=== PATIENT | female | born 1970 | race Caucasian/White ===

== ENCOUNTER 2019-08-24 09:13 | Inpatient (IN) ==
[2019-08-24] MEDS ORDERED: IMODIUM PO PRN ×2 (12:19)
[2019-08-24] MEDS ORDERED: NICOTINE GUM BUCCAL PRN (12:19)
[2019-08-24] MEDS ORDERED: DESYREL PO PRN (12:19)
[2019-08-24] MEDS ORDERED: D5W 1,000 ML IV PRN (12:19)
[2019-08-24] MEDS ORDERED: SENOKOT PO PRN (12:19)
[2019-08-24] MEDS ORDERED: MAALOX PLUS LIQUID PO PRN (12:19)
[2019-08-24] MEDS ORDERED: PHENOBARBITAL IV PRN (12:19)
[2019-08-24] MEDS ORDERED: ZOFRAN IV PRN (12:19)
[2019-08-24] MEDS ORDERED: TUBERSOL ID ONE (12:19)
[2019-08-24] MEDS ORDERED: ZOFRAN IM PRN (12:19)
[2019-08-24] MEDS ORDERED: ZOFRAN ODT PO PRN (12:19)
[2019-08-24] MEDS ORDERED: SEROQUEL PO PRN (12:19)
[2019-08-24] MEDS ORDERED: NICODERM PATCH TD PRN (12:19)
[2019-08-24] MEDS ORDERED: TYLENOL PO PRN (12:19)
[2019-08-24] MEDS ORDERED: DULCOLAX PR PRN (12:19)
[2019-08-24 12:50] LABS: URINE SOURCE CLEAN CATCH
[2019-08-24 12:54] LABS: BILIRUBIN URINE NEGATIVE (NEGATIVE); BLOOD URINE NEGATIVE (NEGATIVE); CLARITY SL. CLOUDY (CLEAR); COLOR YELLOW; GLUCOSE URINE NEGATIVE (NEGATIVE); KETONE URINE NEGATIVE (NEGATIVE); LEUKOCYTES URINE NEGATIVE (NEGATIVE); NITRITE URINE NEGATIVE (NEGATIVE); PROTEIN URINE NEGATIVE (NEGATIVE); UROBILINOGEN URINE NORMAL
[2019-08-24 13:03] LABS: UR AMPHETAMINES QUAL NONE DETECTED (NONE DETECT); UR BARBITUATES QUAL NONE DETECTED (NONE DETECT); UR BENZODIAZEPIN QUAL NONE DETECTED (NONE DETECT); UR CANNABINOIDS QUAL NONE DETECTED (NONE DETECT); UR COCAINE QUAL NONE DETECTED (NONE DETECT); UR METHADONE QUAL NONE DETECTED (NONE DETECT); UR METHAMPHETAMINE QUAL NONE DETECTED (NONE DETECT); UR OPIATES QUAL NONE DETECTED (NONE DETECT); UR OXYCODONE QUAL NONE DETECTED (NONE DETECT); UR PCP QUAL NONE DETECTED (NONE DETECT); UR PROPOXYPHENE QUAL NONE DETECTED (NONE DETECT); UR TCA QUAL PRESUMPTIVE POSITIVE (NONE DETECT)
[2019-08-24] MEDS ORDERED: ATARAX PO PRN (13:04)
[2019-08-24] MEDS ORDERED: BENTYL PO PRN (13:04)
[2019-08-24 13:18] LABS: AMYLASE 31 U/L (20-200); LIPASE 17 U/L (13-60)
[2019-08-24] MEDS ORDERED: PNEUMOVAX 23 IM ONE (14:24)
[2019-08-24] MEDS: ATARAX PO PRN (14:55)
[2019-08-24] MEDS: SUBOXONE 2 MG/0.5 MG FILM SL SCH (17:37)
[2019-08-24] MEDS: ROBAXIN PO PRN (18:40)
[2019-08-25] MEDS: MOTRIN PO PRN (00:17)
[2019-08-25] MEDS: ATARAX PO PRN ×3 (02:21→23:21)
[2019-08-25] MEDS: LIBRIUM PO PRN (03:09)
[2019-08-25] MEDS: ROBAXIN PO PRN ×3 (03:09→23:22)
[2019-08-25] MEDS: SUBOXONE 2 MG/0.5 MG FILM SL SCH ×3 (06:48→18:37)
[2019-08-25] MEDS: PROTONIX PO SCH ×2 (06:49→09:59)
[2019-08-25] MEDS ORDERED: LR 0 ML ONE (09:51)
[2019-08-25] MEDS: THERA M PLUS PO SCH (09:58)
[2019-08-25] MEDS: FOLIC ACID PO SCH (09:58)
[2019-08-26] MEDS: PROTONIX PO SCH (06:05)
[2019-08-26] MEDS: SUBOXONE 2 MG/0.5 MG FILM SL SCH (06:06)
[2019-08-26] MEDS ORDERED: SUBOXONE 2 MG/0.5 MG FILM SL SCH (08:30)
[2019-08-26] MEDS ORDERED: BUSPAR PO PRN (08:31)
[2019-08-26] MEDS: ATARAX PO PRN ×3 (08:56→23:50)
[2019-08-26] MEDS: PAXIL PO SCH (08:56)
[2019-08-26] MEDS: ZANTAC PO SCH ×2 (08:56→21:21)
[2019-08-26] MEDS: THERA M PLUS PO SCH (08:56)
[2019-08-26] MEDS: FOLIC ACID PO SCH (08:56)
[2019-08-26] MEDS: ROBAXIN PO PRN ×2 (08:56→18:51)
[2019-08-26] MEDS: VITAMIN B-1 PO SCH ×2 (08:56→09:25)
[2019-08-26] MEDS: SYNTHROID PO SCH (09:25)
[2019-08-26] MEDS: SUBOXONE 8 MG/2 MG FILM SL SCH ×2 (09:25→21:21)
--- NOTE | 2019-08-26 09:38 | PROGRESS NOTE ---
DATE: 08/26/2019 SUBJECTIVE: Patient notes that she feels better on the 4 mg but does not feel quite well. The patient says it is going to last long enough. Notes that she is not going to be successful at home without Suboxone. Denies any fevers or chills. PHYSICAL EXAMINATION: Vital Signs: Reviewed. Temperature 98.7 degrees, pulse 111, respiratory 20. General: Patient is awake, alert, very pleasant, in no respiratory distress. HEENT: Normocephalic. Neck: Supple. Cardiovascular: Regular rate. Chest: Clear. Abdomen: Soft. Extremities: Moves all extremities. Neurologic: No changes. ASSESSMENT: 1. Nausea vomiting. 2. Abdominal pain. 3. Paresthesias. 4. Paroxysmal sweating. 5. Opiate abuse, withdrawal and stabilization. PLAN: We will continue patient in the hospital. We are going to attempt 4 mg today. Hopefully, this will be enough if not which certainly will need to increase and we will follow. We will continue counseling. cc: Alex Philippe MD
[2019-08-27] MEDS: PROTONIX PO SCH (06:52)
[2019-08-27] MEDS: SYNTHROID PO SCH (06:52)
[2019-08-27] MEDS: ATARAX PO PRN ×2 (09:01→20:49)
[2019-08-27] MEDS: SUBOXONE 8 MG/2 MG FILM SL SCH ×2 (09:01→20:49)
[2019-08-27] MEDS: ZANTAC PO SCH ×2 (09:01→20:49)
[2019-08-27] MEDS: PAXIL PO SCH (09:01)
[2019-08-27] MEDS: FOLIC ACID PO SCH (09:02)
[2019-08-27] MEDS: VITAMIN B-1 PO SCH (09:02)
[2019-08-27] MEDS: THERA M PLUS PO SCH (09:02)
[2019-08-27] MEDS: SINEMET 25/100 PO PRN (09:10)
[2019-08-27] MEDS: MOTRIN PO PRN ×2 (09:10→20:50)
--- NOTE | 2019-08-27 10:24 | PROGRESS NOTE ---
DATE: 08/26/2019 SUBJECTIVE: The patient notes that she is feeling better although not completely back to normal. She states she is still having breakthrough withdrawal symptoms when the medication wears off. Denies any fevers or chills. PHYSICAL EXAMINATION: Vital signs reviewed. General: She is awake, alert. She is no apparent respiratory distress. HEENT: Normocephalic. Neck: Supple. Cardiovascular: Regular rate. No murmurs. Chest: Clear. Abdomen: Soft. Extremities: Moves all extremities. ASSESSMENT: 1. Nausea and vomiting. 2. Abdominal pain. 3. Mild paresthesias. 4. Paroxysmal sweating. 5. Chronic anxiety, depression. 6. Opiate abuse withdrawal and stabilization. PLAN: Will continue patient in the hospital, continue to follow, will increase her Suboxone up to 8, continue counseling, further orders as needed. cc: Alex Philippe MD MTDD
--- NOTE | 2019-08-27 12:09 | PROGRESS NOTE ---
DATE: 08/27/2019 SUBJECTIVE: The patient notes that she thought she was feeling better yesterday, however, last evening had a terrible night. She had issues with anxiety, restlessness, nausea, and she vomited a time or 2. She states she did not sleep well. States that at home that is typically when she would take opiates. PHYSICAL EXAMINATION: Vital Signs: Reviewed. Temperature 97.5 degrees, pulse 87, respiratory rate 18, and BP 132/78. General: Patient is in no current respiratory distress. HEENT: Normocephalic. Neck: Supple. Cardiovascular: Regular rate. No murmurs. Lungs: Chest clear and nonlabored. Abdomen: Soft. Nondistended. Nontender. Extremities: Moves all extremities. Neurologic: No focal changes. Skin: Warm and dry. No rashes. ASSESSMENT: 1. Nausea and vomiting. 2. Abdominal pain. 3. Tremors. 4. Myalgias. 5. Anxiety and depression. 6. Hypothyroidism. 7. Fibromyalgia. 8. Chronic pain. 9. Opiate abuse withdrawal and stabilization on Suboxone. PLAN: We will continue medication assisted therapy. We increased her to 8/2 yesterday. We are going to follow today. Given that she has such an eventful night, we are not going to discharge her today. However, hopefully, this will improve tonight and she can be discharged tomorrow. cc: Alex Philippe MD
--- NOTE | 2019-08-27 12:55 | HISTORY AND PHYSICAL ---
CHIEF COMPLAINT: Nausea and vomiting. HISTORY OF PRESENT ILLNESS: The patient is a 48-year-old female who [facility] to [facility] secondary to nausea, vomiting, abdominal pain, myalgias. Notes that she has been overtaking opiates. She has been attempting to stop but has not been able to. She states she just cannot continue to do this daily. It has caused health problems as well as emotional problems. SOCIAL HISTORY: Patient is single. She lives at home. She states she is on disability. Lives in [place] with her mom. PAST MEDICAL HISTORY: 1. Fibromyalgia. 2. Hypothyroidism. 3. She has a history of depression since teenager. 4. Iron deficiency anemia. MEDICATIONS: 1. BuSpar 15 three times daily. 2. Paxil 40 daily. 3. Synthroid 88. 4. Ranitidine 150. ALLERGIES: Tramadol "stops her breathing." REVIEW OF SYSTEMS: CINA score is elevated at 16 secondary to mild nausea. She has had some retching but no true vomiting. She has abdominal pain, diarrhea, muscle aches, anxiety. She has been fidgety, restless, unable sit still, constantly shifting about. She has been sniffling, watery eyes. She has had some mild tremors. Denies any fevers or chills, headaches, blurred vision, change in vision. Denies any focalized numbness, tingling, weakness in her extremities. Denies any dysuria, frequency, urgency, hesitancy. SUBSTANCE ABUSE HISTORY: The patient has not been in treatment facility in the past, although it has caused significant problems. She started drinking at 16, currently drinks rarely. Started marijuana at 19, currently drinks rarely. Started speed at 22, has not used since age 23. She tried depressants from 23 to 26, has not used since. Started opiates at age 21, gradually has increased over time. Currently is taking up to six to eight 10 mg pills daily. Started smoking at 20, stopped at 33. FAMILY HISTORY: Noncontributory. PHYSICAL EXAMINATION: VITAL SIGNS: Reviewed and stable. GENERAL: Patient is awake, alert, currently in no respiratory distress. HEENT: Normocephalic. NECK: Supple. CARDIOVASCULAR: Regular rate. No murmurs. CHEST: Clear, nonlabored. ABDOMEN: Soft, nondistended, nontender. EXTREMITIES: Moves all extremities. NEUROLOGIC: No focal changes. SKIN: Warm and dry. No rashes. ASSESSMENT: 1. Nausea, vomiting. 2. Abdominal pain. 3. Myalgias. 4. Paresthesias. 5. Paroxysmal sweating. 6. Opiate abuse withdrawal and stabilization. 7. Fibromyalgia. 8. Hypothyroidism. 9. Chronic anxiety, depression. PLAN: We will continue patient in the hospital. Place her on Suboxone. Begin counseling. Continue home medications. Follow her withdrawal. Treat symptomatically. Further orders as needed. cc: Alex Philippe MD
[2019-08-27] MEDS: LIBRIUM PO PRN (15:10)
[2019-08-28] MEDS: PROTONIX PO SCH ×2 (05:56→09:19)
[2019-08-28] MEDS: SYNTHROID PO SCH ×2 (05:56→09:19)
[2019-08-28] MEDS: PAXIL PO SCH (09:19)
[2019-08-28] MEDS: FOLIC ACID PO SCH (09:19)
[2019-08-28] MEDS: SUBOXONE 8 MG/2 MG FILM SL SCH (09:20)
[2019-08-28] MEDS: SINEMET 25/100 PO PRN (09:20)
[2019-08-28] MEDS: ATARAX PO PRN (09:20)
[2019-08-28] MEDS: LIBRIUM PO PRN ×2 (09:20→12:58)
[2019-08-28] MEDS: ZANTAC PO SCH (09:20)
[2019-08-28] MEDS: VITAMIN B-1 PO SCH (09:20)
[2019-08-28] MEDS: MOTRIN PO PRN (09:20)
[2019-08-28] MEDS: THERA M PLUS PO SCH (09:20)
[2019-08-28 11:52] VITALS: BP 122/80
--- NOTE | 2019-08-28 19:24 | DISCHARGE SUMMARY ---
ADMISSION DATE: 08/24/2019 DISCHARGE DATE: 08/28/2019 DISCHARGE DIAGNOSES: 1. Nausea, vomiting. 2. Abdominal pain. 3. Myalgias. 4. Tremors. 5. Paresthesias. 6. Paroxysmal sweating. 7. Opiate abuse, withdrawal, and stabilization. 8. Chronic anxiety and depression. 9. Hypothyroidism. 10. Fibromyalgia. CONSULTATIONS: None. PROCEDURES: None. BRIEF HOSPITAL COURSE: The patient is a 49-year-old female who presented to [facility] secondary to nausea, vomiting, abdominal pain, myalgias, and paresthesias. She was having opiate withdrawal symptoms, was treated with Suboxone. We did have to increase to 8/2 due to her withdrawal symptoms. Thankfully on discharge, she is much improved. States that she is feeling better and therefore we will discharge her home. PLAN: Discussed with patient that she needs to follow up outpatient with treatment facility of choice. She needs outpatient life counseling as well as drug counseling. We will continue Suboxone. She will follow up outpatient with treatment facility of choice. TIME SPENT: Greater than 30 minutes was spent in discharge care. cc: Alex Philippe MD
== END 2019-08-28 13:10 | disposition home or self-care (01) | DRG 897 ==
LOC: P.DIRADM 11:03 → P.MEDSURG 11:55
PROVIDERS: ADMIT Family Medicine; ATTEND Family Medicine